=== PATIENT | male | born 1975 | race Caucasian/White ===

== ENCOUNTER 2016-11-30 22:49 | Emergency (ER) | payer OTHER ==
[~2016-11-30] VITALS: Ht 193 cm; Wt 99.1 kg
[~2016-11-30 22:49] MED LIST: FLOMAX0.4 MG PO; NOHOMEMEDS; WELLBUTRIN100 MG PO
[2016-11-30 22:51] VITALS: BP 145/86
[2016-12-01] MEDS ORDERED: BACTRIM,SEPT1 TABLET PO (00:59)
[2016-12-01] MEDS ORDERED: PERCOCET 5/31 TABLET PO (00:59)
== END 2016-12-01 01:22 | disposition home or self-care (01) ==
LOC: EXP 22:49 → EME 22:49 → EXP 12-01 01:22
PROC: 0H99XZZ Drainage of Perineum Skin, External Approach (ICD-10-PCS; principal; 2016-11-30)
DX: L02.215 Cutaneous abscess of perineum (principal); F17.200 Nicotine dependence, unspecified, uncomplicated
CPT/HCPCS: 99281; 99283